=== PATIENT | female | born 1980 | race African-American/Black ===

== ENCOUNTER 2016-11-23 10:29 | Emergency (ER) | payer SELFPAY ==
--- NOTE | 2016-11-23 11:05 | UC ---
Complaint Female HPI - HPI Summary HPI Summary: The patient comes in today for: 1. Vaginal discharge: Onset: This morning. Palliative/provocative: Nothing makes her discharge better or worse. Quality: Clear fluid. Region: Vaginal area. Severity: No pain. Time: Event happened once and then a second time, "a tiny bit." Associated symptoms: Discharge: She describes it as being "water like." A1 with LMP 06/21/16 (22 weeks and one day). She states that she is not able to say if the "water" coming out is the same as what she had with her first child. No contractions. No blood. care: She was seen in [facility], [place] for her . She had had 4-5 visits. She had her one miscarrage at about 20 weeks. * - History Of Current Complaint Chief Complaint: UCGeneralIllness Stated Complaint: WITH VAGINAL DISCHARGE Time Seen by Provider: 11/23/16 10:55 Hx Obtained From: Patient Hx Last Menstrual Period: 06/20 ?: Yes PMH/Surg Hx/FS Hx/Imm Hx Previously Healthy: Yes Endocrine History Of: Denies: Diabetes, Thyroid Disease, Hyperthyroidism, Hypothyroidism, Dyslipidemia Cardiovascular History Of: Denies: Cardiac Disorders, Hypertension, Pacemaker/ICD, Myocardial Infarction , Congestive Heart Failure, Atrial Fibrillation, Deep Vein Thrombosis, Bleeding Disorders Respiratory History Of: Denies: COPD, Asthma, Bronchitis, Pneumonia, Pulmonary Embolism GI/ History Of: Denies: Gastroesophageal Reflux, Ulcer, Gastrointestinal Bleed, Gall Bladder Disease, Kidney Stones, Diverticulitis, Renal Disease, Urosepsis Neurological History Of: Denies: TIA, CVA, Dementia, Seizures, Migraine Psychological History Of: Denies: Anxiety, Depression, Bipolar Disorder, Schizophrenia, Post Traumatic Stress Disorder Cancer History Of: Denies: Lung Cancer, Colorectal Cancer, Breast Cancer, Prostate Cancer, Cervical Cancer Other History Of: Negative For: HIV, Hepatitis B, Hepatitis C, Anticoagulant Therapy - Surgical History Surgical History: Yes Surgery Procedure, Year, and Place: c section - Family History Known Family History: Negative: Cardiac Disease, Hypertension - Social History Occupation: Unemployed Alcohol Use: None Substance Use Type: None Smoking Status (MU): Never Smoked Tobacco Review of Systems Constitutional: Negative Skin: Negative Eyes: Negative ENT: Negative Respiratory: Negative Cardiovascular: Negative Gastrointestinal: Negative Genitourinary: Negative All Other Systems Reviewed And Are Negative: Yes Physical Exam Triage Information Reviewed: Yes Appearance: Well-Appearing, No Pain Distress, Well-Nourished, Ill-Appearing Vital Signs: Initial Vital Signs Temp 98.9 F 11/23/16 10:47 Pulse 88 11/23/16 10:47 Resp 16 11/23/16 10:47 BP 104/66 11/23/16 10:47 Pulse Ox 99 11/23/16 10:47 Vital Signs Reviewed: Yes Eyes: Positive: Conjunctiva Clear. Negative: Discharge ENT: Positive: Hearing grossly normal. Negative: Pharyngeal erythema, Nasal congestion, Nasal drainage, TM bulging, TM dull, TM red, Tonsillar swelling, Tonsillar exudate Dental: Negative: Gross Decay/Caries @, Dental Fracture @ Neck: Positive: Supple, Nontender, No Lymphadenopathy Respiratory: Positive: Chest non-tender, Lungs clear, No respiratory distress, No accessory muscle use. Negative: Crackles, Rhonchi, Stridor Cardiovascular: Positive: RRR, No Murmur Abdomen Description: Positive: Nontender, No Organomegaly, Soft, Other: - Uterus at about 20 weeks. Not indurated. Nontender.. Negative: Distended, Guarding Musculoskeletal: Positive: Strength Intact, ROM Intact, No Edema Neurological: Positive: Alert, Muscle Tone Normal Psychological: Positive: Age Appropriate Behavior, Consolable Skin: Negative: rashes, breakdown Complaint Female Dx - Course Course Of Treatment: Call to [facility] L & D. CAll to L & D--must discuss with physician information services assistant before sending. 11:20. JACK SPINNER physician information services assistant called and said that we can send the patient over for evaluation of premature rupture of membranes. - Differential Dx/Diagnosis Differential Diagnosis/HQI/PQRI: Cervicitis, Pelvic Inflammatory Disease Provider Diagnoses: Premature rupture of membranes. Discharge - Discharge Plan Condition: Stable Disposition: HOME Patient Education Materials: Premature Rupture of Membranes (GEN) Additional Instructions: Please go via ambulance to L & [place] at [facility]
[2016-11-23 11:28] VITALS: BP 104/67
== END 2016-11-23 11:43 | disposition short-term general hospital (02) ==
LOC: UCEAST 10:29
DX: O42.912 Preterm premature rupture of membranes, unspecified as to length of time between rupture and onset of labor, second trimester (principal); Z3A.22 22 weeks gestation of pregnancy
CPT/HCPCS: 99203; G0463

== ENCOUNTER 2016-11-26 06:26 | Emergency (ER) | payer SELFPAY ==
[2016-11-26 06:48] VITALS: BP 106/71
--- NOTE | 2016-12-25 23:20 | ED ---
Progress - Progress Note Progress Note: pt went to L and D from triage and i didnt see the pt in er. Course/Dx - Diagnoses Provider Diagnoses:
== END 2016-11-26 06:52 | disposition home or self-care (01) ==
LOC: ED 06:26
DX: Z34.90 Encounter for supervision of normal pregnancy, unspecified, unspecified trimester (principal); R10.9 Unspecified abdominal pain
CPT/HCPCS: 99282

== ENCOUNTER 2016-11-26 06:51 | Inpatient (IN) | payer SELFPAY ==
[2016-11-26] MEDS ORDERED: Oxytocin in LR* 20 UNITS/1,000 ML BAG IVPB ONE ×3 (07:38→09:36)
[2016-11-26 07:40] LABS: Hematocrit 34 % (35-47); Mean Corpuscular HGB Conc 33 g/dl (31-36); Mean Corpuscular Hemoglobin 28 pg (27-31); Mean Corpuscular Volume 87 fL (80-97); Mean Platelet Volume 10 um3 (7.4-10.4); Red Blood Count 3.91 10^6/ul (4.0-5.4); Red Cell Distribution Width 15 % (10.5-15); White Blood Count 12.2 10^3/ul (3.5-10.8)
[2016-11-26 07:49] LABS: Albumin 3.3 g/dL (3.2-5.2); Calcium 8.8 mg/dL (8.6-10.3); EGFR African American 181.6 (>60); EGFR Non-African American 141.2 (>60); Globulin 3.7 g/dL (2-4); Potassium 3.6 mmol/L (3.5-5.0); Total Bilirubin 0.3 mg/dL (0.2-1.0)
[2016-11-26] MEDS ORDERED: fentaNYL* 50 MCG/ML 2 ML VIAL (100 MCG VIAL) ONE (08:27)
[2016-11-26] MEDS ORDERED: ceFOXitin 2 GM IVPREMIX* 2 GM/50 ML BAG ONE (08:55)
[2016-11-26] MEDS ORDERED: fentaNYL* 50 MCG/ML 2 ML VIAL (100 MCG VIAL) IV ONE (08:57)
[2016-11-26 09:22] LABS: Hematocrit 25 % (35-47); Mean Corpuscular HGB Conc 32 g/dl (31-36); Mean Corpuscular Hemoglobin 29 pg (27-31); Mean Corpuscular Volume 88 fL (80-97); Red Blood Count 2.77 10^6/ul (4.0-5.4); Red Cell Distribution Width 15 % (10.5-15); White Blood Count 7.2 10^3/ul (3.5-10.8)
[2016-11-26 09:24] LABS: Comments Flag Yes
[2016-11-26 09:28] LABS: Add Diff/Slide Review? Slide Review Added
[2016-11-26] MEDS ORDERED: Witch Hazel PAD* JAR TOPICAL PRN (09:33)
[2016-11-26] MEDS ORDERED: Glycerin ADULT SUPP PR PRN (09:33)
[2016-11-26] MEDS ORDERED: oxyCODONE/Acetamin 5/325 MG* TAB PO PRN (09:33)
[2016-11-26] MEDS ORDERED: Dibucaine 1% 28.35 GM TUBE PR PRN (09:33)
[2016-11-26] MEDS ORDERED: Ibuprofen TAB* 600 MG PO PRN (09:33)
[2016-11-26] MEDS ORDERED: oxyCODONE/Acetamin 5/325 MG* TAB ONE (09:34)
[2016-11-26] MEDS ORDERED: Oxytocin in LR* 20 UNITS/1,000 ML BAG IVPB SCH (10:00)
[2016-11-26 10:30] LABS: Mean Platelet Volume 10 um3 (7.4-10.4)
[2016-11-26 10:42] LABS: Hematocrit 19 % (35-47); Mean Corpuscular HGB Conc 32 g/dl (31-36); Mean Corpuscular Hemoglobin 29 pg (27-31); Mean Corpuscular Volume 88 fL (80-97); Mean Platelet Volume 9 um3 (7.4-10.4); Red Blood Count 2.16 10^6/ul (4.0-5.4); Red Cell Distribution Width 14 % (10.5-15); White Blood Count 7.2 10^3/ul (3.5-10.8)
[2016-11-26 10:52] LABS: Comments Flag Yes
[2016-11-26 10:55] LABS: Hemoglobin 6.2 g/dl (12.0-16.0)
--- NOTE | 2016-11-26 11:06 | CONSULT ---
Consult Consult: Neonatology Consult Note: Requested by: Briseida Leon MD Indication: labor and viability concern 36 yo mother in labor with ROM, fully dilated cervix at 22 3/7 weeks gestation. History of previous loss at 20 weeks gestation. She was seen by perinatology service at [place] few days ago. OB service consulted perinatology and advised against steroids or any active interventions. Mother recently moved from [facility]. As labor was progressing rapidly, I discussed the possible outcomes at 22 weeks gestational age and possibility of survival <5% with > 95% risk of or moderate to severe neuro developmental impairment. I also discussed outcomes for mechanically ventilated infants in this sub group as survival without moderate to severe neurodevelopmental impairment is around 2%. I have discussed with [facility] center profile trimmer Dr. Debo Jon about the impending delivery and agreed that we should offer comfort care depending on 's condition at delivery as current local guidelines recommend intensive care above 23 0/7 weeks.
[2016-11-26] MEDS: Acetaminophen TAB* 325 MG PO PRN ×2 (11:52→19:20)
[2016-11-26] MEDS ORDERED: Simethicone TAB* 80 MG TAB.CHEW PO SCH (12:30)
[2016-11-26 13:46] LABS: Rapid HIV INT CONT QC Line Present
[2016-11-26 13:47] LABS: Manual Entry Verification GRE0060; Rapid HIV Kit Lot# F209011
[2016-11-26] MEDS: Docusate CAP* 100 MG PO SCH ×2 (14:00→21:16)
[2016-11-26 18:04] LABS: Hematocrit 24 % (35-47); Hemoglobin 7.9 g/dl (12.0-16.0); Mean Corpuscular HGB Conc 33 g/dl (31-36); Mean Corpuscular Hemoglobin 29 pg (27-31); Mean Corpuscular Volume 87 fL (80-97); Mean Platelet Volume 10 um3 (7.4-10.4); Red Blood Count 2.75 10^6/ul (4.0-5.4); Red Cell Distribution Width 14 % (10.5-15); White Blood Count 17.2 10^3/ul (3.5-10.8)
[2016-11-26] MEDS ORDERED: Ammonia Inhalant* 1 EA AMP ONE (19:55)
[2016-11-26] MEDS: Clindamycin 900 MG IVPREMIX(* 900 MG/50 ML SDV IV SCH (21:13)
[2016-11-26] MEDS ORDERED: NS 0.9% IVPB SCH (21:30)
[2016-11-26] MEDS ORDERED: GENTAMICIN ADULT IVPB SCH (21:30)
[2016-11-27] MEDS ORDERED: Gentamicin ADULT per pharmacy 1 NOTE MISC FOLLOW UP PRN (02:40)
[2016-11-27] MEDS: Clindamycin 900 MG IVPREMIX(* 900 MG/50 ML SDV IV SCH ×3 (04:42→20:41)
[2016-11-27 07:26] LABS: Hematocrit 22 % (35-47); Hemoglobin 7.2 g/dl (12.0-16.0); Mean Corpuscular HGB Conc 33 g/dl (31-36); Mean Corpuscular Hemoglobin 29 pg (27-31); Mean Corpuscular Volume 86 fL (80-97); Mean Platelet Volume 10 um3 (7.4-10.4); Red Blood Count 2.49 10^6/ul (4.0-5.4); Red Cell Distribution Width 14 % (10.5-15); White Blood Count 19.5 10^3/ul (3.5-10.8)
[2016-11-27 07:27] LABS: Add Diff/Slide Review? Slide Review Added; Comments Flag Yes
[2016-11-27 07:41] LABS: EGFR Non-African American 155.5 (>60)
[2016-11-27] MEDS: Docusate CAP* 100 MG PO SCH ×3 (08:21→20:41)
[2016-11-27] MEDS ORDERED: Gentamicin Trough Level 1 NOTE MISC FOLLOW UP SCH (09:30)
[2016-11-27 10:52] LABS: Syphilis Index < 0.1 Index
[2016-11-27] MEDS: Ferrous Gluconate TAB* 324 MG TAB PO SCH ×2 (13:02→20:41)
[2016-11-27] MEDS: Acetaminophen TAB* 325 MG PO PRN (16:07)
[2016-11-27] MEDS: Ampicillin IV* 2 GM in NS 0.9% 100 ML* 100 ML IVPB SCH (18:17)
[2016-11-27] MEDS ORDERED: Gentamicin ADULT (*) 300 MG in NS 0.9% 250 ML* 250 ML IVPB SCH (21:30)
[2016-11-28] MEDS: Ampicillin IV* 2 GM in NS 0.9% 100 ML* 100 ML IVPB SCH ×3 (00:05→12:00)
[2016-11-28] MEDS: Acetaminophen TAB* 325 MG PO PRN ×2 (01:31→09:27)
[2016-11-28] MEDS: Clindamycin 900 MG IVPREMIX(* 900 MG/50 ML SDV IV SCH ×2 (04:23→12:30)
[2016-11-28] MEDS: Ferrous Gluconate TAB* 324 MG TAB PO SCH (08:15)
[2016-11-28] MEDS: Docusate CAP* 100 MG PO SCH ×2 (08:15→14:00)
[2016-11-28 12:36] VITALS: BP 99/58
[2016-11-30] MEDS ORDERED: Gentamicin RANDOM Level 1 NOTE MISC FOLLOW UP ONE (10:00)
== END 2016-11-28 15:15 | disposition home or self-care (01) | DRG 774 ==
LOC: MCHOBOUT 06:51 → MCHOB 07:19
PROVIDERS: ADMIT Obstetrics & Gynecology; ATTEND Obstetrics & Gynecology
PROC: 10E0XZZ Delivery of Products of Conception, External Approach (ICD-10-PCS; principal; 2016-11-26)
PROC: 30233N1 Transfusion of Nonautologous Red Blood Cells into Peripheral Vein, Percutaneous Approach (ICD-10-PCS; 2016-11-26)
DX: O42.012 Preterm premature rupture of membranes, onset of labor within 24 hours of rupture, second trimester (principal); O72.2 Delayed and secondary postpartum hemorrhage; O62.3 Precipitate labor; O90.81 Anemia of the puerperium; D64.9 Anemia, unspecified; Z3A.22 22 weeks gestation of pregnancy; Z37.0 Single live birth
CPT/HCPCS: 36415; 80053; 80170; 82565; 84520; 85025; 85027; 85610; 85730; 86592; 86703; 86762; 86850; 86900; 86901; 86922; 87070; 87077; 87186; 87340; 88305; A9270-GY; J0290; J0694; J1580; J3010; P9016; P9040